=== PATIENT | male | born 1970 | race Caucasian/White ===

== ENCOUNTER → 2018-03-16 | Outpatient (CLI) | payer OTHER ==
[~2018-03-16] MED LIST: ISOVUE-370 76% 100ML VIAL (Q9967) As Ordered
== END ==
LOC: M RAD 13:53
DX: R91.8 Other nonspecific abnormal finding of lung field (principal)
CPT/HCPCS: Q9967

== ENCOUNTER → 2019-04-23 | Outpatient (CLI) | payer OTHER ==
--- NOTE | 2019-04-24 07:39 | REP ---
Clinical: Left-sided neck pain. Technique: AP, lateral, flexion/extension, bilateral oblique, and open mouth views of the cervical spine. Findings: Alignment and lordosis maintained. Mild degenerative changes include endplate sclerosis with disc space narrowing and very early marginal spurring predominantly involving C6-7, C5-6, and C4-5. No acute fracture / compression injury or subluxation. Oblique views demonstrate patent neural foramen. Open mouth view demonstrates normal C1-C2 articulation and odontoid process. Impression: Mild degenerative changes primarily involving C4-C7. Electronically Signed by Gucci Galdamez MD 04/23/2019 11:05 A
== END ==
LOC: M LRY 10:39
PROVIDERS: ATTEND Nurse Practitioner Family
DX: M50.321 Other cervical disc degeneration at C4-C5 level (principal); M50.322 Other cervical disc degeneration at C5-C6 level; M50.323 Other cervical disc degeneration at C6-C7 level
CPT/HCPCS: 72052; J1885